=== PATIENT | female | born 1990 | race African-American/Black ===

== ENCOUNTER 2016-09-14 11:21 | Emergency (ER) | payer MEDICAID ==
[~2016-09-14] VITALS: Ht 162.6 cm; Wt 65.0 kg
[2016-09-14 11:33] VITALS: BP 151/97
[2016-09-14] MEDS ORDERED: SILVER SULFADIAZINE 1% CREAM 25GM TOP ONE (12:30)
[2016-09-14] MEDS ORDERED: TETANUS, DIPHTHERIA, PERTUSSIS VAC/PF 0.5ML (>7YR OLD) IM ONE (13:00)
== END 2016-09-14 13:31 | disposition home or self-care (01) ==
LOC: ER 11:22
DX: T23.202A Burn of second degree of left hand, unspecified site, initial encounter (principal); T31.0 Burns involving less than 10% of body surface; F17.200 Nicotine dependence, unspecified, uncomplicated; F12.10 Cannabis abuse, uncomplicated; D64.9 Anemia, unspecified; Z98.890 Other specified postprocedural states; X11.8XXA Contact with other hot tap-water, initial encounter; Y93.89 Activity, other specified; Y92.89 Other specified places as the place of occurrence of the external cause; Y99.8 Other external cause status
CPT/HCPCS: 16020; 90471; 90715; 99284; X7700; Z7610